=== PATIENT | male | born 1995 | race Caucasian/White ===

== ENCOUNTER 2019-09-19 08:33 | Emergency (ER) | payer SELFPAY ==
[2019-09-19 08:39] VITALS: BP 121/77; PULSE 94; RESP 16; TEMP 36.3
--- NOTE | 2019-09-19 08:50 | DI.RAD_ITS ---
EXAM: XR CHEST 2V PA LATERAL INDICATION: shortness of breath. COMPARISON: No exams were available for comparison TECHNIQUE: 2D digital imaging was performed. FINDINGS: The lungs are well expanded and free of infiltrate. There is no pleural effusion. The cardiovascular structures are intact. There is no evidence of acute cardiopulmonary disease.
--- NOTE | 2019-09-19 08:51 | ED.GENADUL_ITS ---
Discharge Plan Disposition Patient Disposition: HOME Condition: Stable Discharge Details Chief Complaint: RespSymp Clinical Impression: Wheezing Primary Care Provider: Maribeth,Local ED Provider: Deven Frank Home Meds and New Rx's Prescriptions: No Action No Known Home Meds RF: 0 Discharge Instructions Instructions: Wheezing (ED) Additional Instructions: if you feel more ill or have worsening trouble breathing return to the emergency department use the inhaler every 2-4 hours 2 puffs each time I placed you on our follow up list to see a primary care provider Medical Decision Making 24 yo male with no chronic medical problems comes in with over a week of cough and shortness of breath. He used to live in [place] and was down there a week ago to gather the rest of his belongings. He developed a fever, cough and dyspnea, and was seen down there and diagnosed with pneumonia and placed on augmentin. He has been taking this and his fevers have resolved but still has cough and shortness of breath and is on last day of antibiotics so came here. He does have a hoarse voice but no throat pain, midline uvula, no pain over hyoid or restricted neck movements. He has wheezing at the bases bilaterally.He apperas well systemically so doubt sepsis. Will obtain cxr to eval for infiltrate and tx with duoneb and prednisone. He is wells score low and perc negative so doubt Pe. No chest pain or sob and symptoms are more infectious in etiology so doubt acs at this time pt eels much better after neb and prednisone and remains HD stable. Xray unremarkable. Will d/c on prednisone, do not feel additional abx indicated. Will place him on f/u list to see pcp within 1-2 weeks and return precautions given Differential Diagnosis Differential Diagnosis: bronchitis, pneumonia, asthma Imaging Data Radiologic Study: Attestation: I personally reviewed and interpreted this imaging study as follows: Imaging: X-Ray Radiologist's impression: no acute findings HPI General Mode of arrival: ambulatory . Date/Time Provider Initiated Documentation: 09/19/19 08:34 . Limitations to Documentation: no limitations . Information obtained by: patient . History of Present Illness 24 year old M presents to the emergency department with the chief complaint of shortness of breath, described as moderate, No relieving factors improve symptom(s), No exacerbating factors reported . Patient notes cough. Related Data Home Medications Medication Instructions Recorded Confirmed Unknown [No Known Home Meds] 09/19/19 09/19/19 Allergies Allergy/AdvReac Type Severity Reaction Status Date / Time No Known Allergies Allergy Unverified 09/19/19 08:44 General Stated Complaint: RespSymp BRIE: 3 Review of Systems Review of Systems ROS Unobtainable: All systems reviewed & are unremarkable except as noted in HPI and below Constitutional Constitutional: Denies chills, Denies fever(s) and Denies weakness Cardiovascular Cardiovascular: Denies chest pain Gastrointestinal Gastrointestinal: Denies abdominal pain, Denies nausea and Denies vomiting Musculoskeletal Musculoskeletal: Denies joint swelling Neurologic Neurologic: Denies weakness PFSH Social History Smoking/Tobacco Use Status: Never Drug use: Never Exam Const General: no acute distress Orientation: alert HENMT Head: normal to inspection Ears: external ears normal General nose exam: external nose normal Mouth: moist mucous membranes Eyes General: appearance normal, both eyes and all related structures Neck Neck: normal visual inspection Resp Effort & Inspection: normal respiratory effort and able to speak in complete sentences Cardio Rate: regular rate Skin General skin exam: no rashes or lesions noted Neuro General: alert and oriented x3 Extrem General: normal to inspection Psych Mental Status: mental status grossly normal Course Vital Signs Vital signs: Vital Signs Temperature 36.3 C L 09/19/19 08:39 Pulse 94 H 09/19/19 08:39 Respiratory Rate 16 09/19/19 08:39 Blood Pressure 121/77 09/19/19 08:39 Temperature 36.3 C L 09/19/19 08:39 Temperature Source Skin 09/19/19 08:39 Pulse 94 H 09/19/19 08:39 Respiratory Rate 16 09/19/19 08:39 Respiratory Effort Non-Labored 09/19/19 08:45 Respiratory Depth Normal 09/19/19 08:45 Blood Pressure 121/77 09/19/19 08:39 Blood Pressure Position Sitting 09/19/19 08:39 Oxygen Delivery Method Room Air 09/19/19 08:39 Oxygen Flow Rate 0 09/19/19 08:39 Pain Level 2 09/19/19 08:39
[2019-09-19] MEDS: predniSONE 20 MG TAB 60 MG PO (09:00)
[2019-09-19] MEDS: Albuterol/Ipratropium 3 ML UPD VIAL UPD (09:05)
[2019-09-19] MEDS: Inhaler, Assist Device 1 EACH MC (09:30)
[2019-09-19 09:35] VITALS: RESP 1
[2019-09-19] MEDS: Albuterol HFA 8 GM 60 PUFF INH IH (09:35)
== END 2019-09-19 10:19 | disposition home or self-care (01) ==
PROVIDERS: Emergency Provider Emergency Medicine
DX: R06.2 Wheezing (principal)
CPT/HCPCS: 94640; 99283; 71046; J7512; J7620